=== PATIENT | male | born 1950 | race Caucasian/White ===

== ENCOUNTER 2018-08-02 08:27 | Outpatient (CLI) | payer MEDICARE, OTHER ==
[~2018-08-02] VITALS: Ht 190.5 cm; Wt 88.3 kg
[2018-08-02] VITALS (14 sets, daily range): BP systolic 64–133; BP diastolic 45–76; PULSE 57–66; TEMP 98.4
[~2018-08-02 08:27] MED LIST: ALBUTEROL S0.4 MG/ML PO; ASPIRIN 81M81 MG/TA2 PO; FISH OIL 500 M1 EAC1 PO; LIPITOR 40MG TA40 MG PO; MULTI VITAMINS1 TAB PO; NORVASC 10MG10 MG PO; PLAVIX 75MG TAB75 MG PO; PROAIR HFA0.09 MG/AC IH; SUPER B COMPLEX PO; TENORMIN 2525 MG/TAB PO; TURMERIC500 MG PO; VITAMINC1000TA PO
--- NOTE | 2018-08-02 10:15 | NUR ---
PT BROUGHT INTO THE CT ROOM. PLACED ON HIS LEFT SIDE. MONITORING EQUIPMENT PLACED.
--- NOTE | 2018-08-02 10:25 | NUR ---
DR CONNOLLY IN THE ROOM AND SPOKE TO PT ABOUT THE PROCEDURE, PT WISHES TO CONTINUE. PT DOING WELL.
--- NOTE | 2018-08-02 10:35 | NUR ---
PROCEDURE COMPLETE. PT TRANSFERS TO CART WITH EASE. PT TAKEN TO EU 10 AFTER HIS CXR..
--- NOTE | 2018-08-02 10:51 | NUR ---
REPORT TAKEN FROM MORGAN BELL IN RADIOLOGY. NO SEDATION MEDS WERE GIVEN.
--- NOTE | 2018-08-02 13:13 | NUR ---
Tried to contact Radiologist in regards to post chest xray and discharge. No answer.
--- NOTE | 2018-08-02 13:20 | NUR ---
Called Radiologist, Dr. Ayoub, he stated pt still has a small pneumo and will need a repeat xray prior discharge.
--- NOTE | 2018-08-02 15:03 | NUR ---
DR. CONNOLLY IN TO SEE THE PT. PT MAY BE DISCHARGED PER DR CONNOLLY. D/C INSTRUCTIONS REVIEWED WITH PT/SO. PT/SO VOICE UNDERSTANDING. IV WAS DISCONTINUED WITH CATHETER TIP INTACT, NO PHLEBITIS OR INFILTRATION. PT WAS DISCHARGED TO HOME VIA AMBULATION WITH SO AT HIS SIDE. D/C INSTRUCTIONS WERE IN PT'S HAND WHEN LEAVING [facility] UNIT.
== END 2018-08-02 15:06 | disposition home or self-care (01) ==
LOC: COL.RAD 08:27
DX: J95.811 Postprocedural pneumothorax (principal)

== ENCOUNTER → 2018-08-17 | Outpatient (CLI) | payer MEDICARE, OTHER | LOC: COL.RAD 09:31 | DX: Z01.812 Encounter for preprocedural laboratory examination (principal); C34.91 Malignant neoplasm of unspecified part of right bronchus or lung; R90.82 White matter disease, unspecified | CPT/HCPCS: A9585 ==